=== PATIENT | female | born 1945 | race Two or more races ===

== ENCOUNTER 2021-01-06 10:50 | Outpatient (CLI) | payer MEDICARE, BC ==
[2021-01-06] MEDS ORDERED: LIDOCAINE SOLN 4% 50 ML BOTTLE ONE (11:14)
[2021-01-06] MEDS ORDERED: COLLAGENASE 5 GM TUBE UD TP ONE (11:42)
[2021-01-06 12:28] LABS: BASOPHILS # (AUTO) 0.1 K/uL (0.0-0.2); BASOPHILS % (AUTO) 1.4 % (0.0-2.0); EOSINOPHILS % (AUTO) 2.2 % (0.0-6.0); HEMATOCRIT 38 % (33-45); HEMOGLOBIN 12.4 g/dL (11.5-14.8); LYMPHOCYTES # (AUTO) 2.8 K/uL (0.8-4.8); LYMPHOCYTES % (AUTO) 29.5 % (20.0-44.0); MEAN CORPUSCULAR HGB CONC 33 g/dl (31.0-36.0); MEAN CORPUSCULAR VOLUME 90 fL (82-100); MONOCYTES # (AUTO) 0.6 K/uL (0.1-1.30); MONOCYTES % (AUTO) 6.5 % (2.0-12.0); NEUTROPHILS # (AUTO) 5.7 K/uL (1.8-8.9); NEUTROPHILS % (AUTO) 60.4 % (43.0-81.0); PLATELET COUNT (AUTO) 335 K/uL (150-450); RED BLOOD CELL COUNT(AUTO) 4.23 MIL/uL (4.0-5.2); WHITE BLOOD COUNT (AUTO) 9.3 K/uL (4.3-11.0)
[2021-01-06 13:09] LABS: PREALBUMIN 24.9 MG/DL (18.0-35.7)
[2021-01-06 13:12] LABS: ALBUMIN 3.5 g/dL (3.4-5.0); BILIRUBIN,TOTAL 0.4 mg/dL (0.2-1.0); CALCIUM, SERUM 9.2 mg/dL (8.5-10.1); CREATININE 1.1 mg/dL (0.6-1.3); POTASSIUM 4.3 mmol/L (3.5-5.1); TOTAL PROTEIN, SERUM 7.2 g/dL (6.4-8.2)
== END 2021-01-06 23:59 | disposition home or self-care (01) ==
LOC: WOU 10:50
PROVIDERS: ATTEND Podiatrist Foot & Ankle Surgery
DX: I70.243 Atherosclerosis of native arteries of left leg with ulceration of ankle (principal); I70.248 Atherosclerosis of native arteries of left leg with ulceration of other part of lower leg; L97.322 Non-pressure chronic ulcer of left ankle with fat layer exposed; L97.825 Non-pressure chronic ulcer of other part of left lower leg with muscle involvement without evidence of necrosis; M79.605 Pain in left leg; I10 Essential (primary) hypertension
CPT/HCPCS: 11042; 11043; 36415; 80053-TC; 84134-TC; 85025-TC

== ENCOUNTER → 2021-01-13 | Outpatient (CLI) | payer MEDICARE, BC ==
[~2021-01-13] MED LIST: COLLAGENASE 5 GM TUBE UD TP ONE; LIDOCAINE SOLN 4% 50 ML BOTTLE ONE
== END | disposition home or self-care (01) ==
LOC: WOU 09:25
PROVIDERS: ATTEND Podiatrist Foot & Ankle Surgery
DX: I70.243 Atherosclerosis of native arteries of left leg with ulceration of ankle (principal); L97.323 Non-pressure chronic ulcer of left ankle with necrosis of muscle; I70.248 Atherosclerosis of native arteries of left leg with ulceration of other part of lower leg; L97.822 Non-pressure chronic ulcer of other part of left lower leg with fat layer exposed; M79.605 Pain in left leg
CPT/HCPCS: 11042; 11043; 87070-TC; 87075-TC; 87186-TC

== ENCOUNTER 2021-01-19 09:10 | Outpatient (CLI) | payer MEDICARE, BC ==
[2021-01-19] MEDS ORDERED: COLLAGENASE 5 GM TUBE UD TP ONE (10:16)
== END 2021-01-19 23:59 | disposition home or self-care (01) ==
LOC: VASLAB 09:10
PROVIDERS: ATTEND Internal Medicine
DX: I70.242 Atherosclerosis of native arteries of left leg with ulceration of calf (principal); L97.229 Non-pressure chronic ulcer of left calf with unspecified severity; Z88.6 Allergy status to analgesic agent; I10 Essential (primary) hypertension; Z87.828 Personal history of other (healed) physical injury and trauma
CPT/HCPCS: G0463

== ENCOUNTER 2021-01-20 09:15 | Outpatient (CLI) | payer MEDICARE, BC ==
[2021-01-20] MEDS ORDERED: GENTAMICIN 0.1% CREAM 15 GM TUBE ONE (09:53)
== END 2021-01-20 23:59 | disposition home health service (06) ==
LOC: WOU 09:15
PROVIDERS: ATTEND Podiatrist Foot & Ankle Surgery
DX: I70.242 Atherosclerosis of native arteries of left leg with ulceration of calf (principal); I70.243 Atherosclerosis of native arteries of left leg with ulceration of ankle; L97.222 Non-pressure chronic ulcer of left calf with fat layer exposed; L97.323 Non-pressure chronic ulcer of left ankle with necrosis of muscle; S80.862S Insect bite (nonvenomous), left lower leg, sequela; T14.8XXS Other injury of unspecified body region, sequela; W57.XXXS Bitten or stung by nonvenomous insect and other nonvenomous arthropods, sequela; Z96.642 Presence of left artificial hip joint; I10 Essential (primary) hypertension
CPT/HCPCS: 11042; 11043; A6407

== ENCOUNTER 2021-01-27 10:34 | Outpatient (CLI) | payer MEDICARE, BC ==
[~2021-01-27 10:34] MED LIST changes: +GENTAMICIN 0.1% CREAM 15 GM TUBE ONE; -LIDOCAINE SOLN 4% 50 ML BOTTLE ONE
== END 2021-01-27 23:59 | disposition home health service (06) ==
LOC: WOU 10:34
PROVIDERS: ATTEND Podiatrist Foot & Ankle Surgery
DX: I70.243 Atherosclerosis of native arteries of left leg with ulceration of ankle (principal); L97.323 Non-pressure chronic ulcer of left ankle with necrosis of muscle; S90.562S Insect bite (nonvenomous), left ankle, sequela; W57.XXXS Bitten or stung by nonvenomous insect and other nonvenomous arthropods, sequela; I70.242 Atherosclerosis of native arteries of left leg with ulceration of calf; L97.225 Non-pressure chronic ulcer of left calf with muscle involvement without evidence of necrosis; I10 Essential (primary) hypertension; Z96.642 Presence of left artificial hip joint; Z88.6 Allergy status to analgesic agent
CPT/HCPCS: 11043; A6407

== ENCOUNTER → 2021-02-01 | Outpatient (CLI) | payer MEDICARE, BC ==
[~2021-02-01] MED LIST changes: -COLLAGENASE 5 GM TUBE UD TP ONE; -GENTAMICIN 0.1% CREAM 15 GM TUBE ONE; +VALS1TAB6 PO
== END | disposition home or self-care (01) ==
LOC: WOU 12:00
PROVIDERS: ATTEND Registered Nurse
DX: S81.802D Unspecified open wound, left lower leg, subsequent encounter (principal); V89.2XXD Person injured in unspecified motor-vehicle accident, traffic, subsequent encounter; B96.4 Proteus (mirabilis) (morganii) as the cause of diseases classified elsewhere; B95.2 Enterococcus as the cause of diseases classified elsewhere; I73.9 Peripheral vascular disease, unspecified; I10 Essential (primary) hypertension
CPT/HCPCS: G0463

== ENCOUNTER 2021-02-03 09:05 | Outpatient (CLI) | payer MEDICARE, BC ==
[2021-02-03] MEDS ORDERED: GENTAMICIN 0.1% CREAM 15 GM TUBE ONE (09:43)
== END 2021-02-03 23:59 | disposition home health service (06) ==
LOC: WOU 09:05
PROVIDERS: ATTEND Podiatrist Foot & Ankle Surgery
DX: I70.243 Atherosclerosis of native arteries of left leg with ulceration of ankle (principal); I70.242 Atherosclerosis of native arteries of left leg with ulceration of calf; L97.223 Non-pressure chronic ulcer of left calf with necrosis of muscle; L97.323 Non-pressure chronic ulcer of left ankle with necrosis of muscle; M79.605 Pain in left leg; Z96.642 Presence of left artificial hip joint; I10 Essential (primary) hypertension; Z88.6 Allergy status to analgesic agent; I73.9 Peripheral vascular disease, unspecified
CPT/HCPCS: 11043; A6407

== ENCOUNTER 2021-02-10 09:10 | Outpatient (CLI) | payer MEDICARE, BC ==
[2021-02-10] MEDS ORDERED: LIDOCAINE SOLN 4% 50 ML BOTTLE ONE (09:14)
== END 2021-02-10 23:59 | disposition home health service (06) ==
LOC: WOU 09:10
PROVIDERS: ATTEND Podiatrist Foot & Ankle Surgery
DX: I70.243 Atherosclerosis of native arteries of left leg with ulceration of ankle (principal); L97.325 Non-pressure chronic ulcer of left ankle with muscle involvement without evidence of necrosis; I70.242 Atherosclerosis of native arteries of left leg with ulceration of calf; L97.825 Non-pressure chronic ulcer of other part of left lower leg with muscle involvement without evidence of necrosis; I73.9 Peripheral vascular disease, unspecified; M79.605 Pain in left leg; I10 Essential (primary) hypertension
CPT/HCPCS: 11043

== ENCOUNTER 2021-02-21 09:50 | Outpatient (CLI) | payer MEDICARE, BC | END 2021-02-21 23:59 | disposition home health service (06) | LOC: WOU 09:50 | PROVIDERS: ATTEND Podiatrist Foot & Ankle Surgery | DX: I70.243 Atherosclerosis of native arteries of left leg with ulceration of ankle (principal); L97.325 Non-pressure chronic ulcer of left ankle with muscle involvement without evidence of necrosis; I70.242 Atherosclerosis of native arteries of left leg with ulceration of calf; L97.225 Non-pressure chronic ulcer of left calf with muscle involvement without evidence of necrosis; M79.605 Pain in left leg | CPT/HCPCS: 11043 ==

== ENCOUNTER 2021-02-28 09:10 | Outpatient (CLI) | payer MEDICARE, BC ==
[2021-02-28] MEDS ORDERED: LIDOCAINE SOLN 4% 50 ML BOTTLE ONE (09:28)
[2021-02-28] MEDS ORDERED: GENTAMICIN 0.1% CREAM 15 GM TUBE ONE (10:06)
== END 2021-02-28 23:59 | disposition home health service (06) ==
LOC: WOU 09:10
PROVIDERS: ATTEND Podiatrist Foot & Ankle Surgery
DX: I70.243 Atherosclerosis of native arteries of left leg with ulceration of ankle (principal); I70.242 Atherosclerosis of native arteries of left leg with ulceration of calf; L97.325 Non-pressure chronic ulcer of left ankle with muscle involvement without evidence of necrosis; L97.225 Non-pressure chronic ulcer of left calf with muscle involvement without evidence of necrosis; M79.605 Pain in left leg
CPT/HCPCS: 11043

== ENCOUNTER 2021-03-01 14:27 | Outpatient (CLI) | payer MEDICARE, BC ==
[2021-03-01 15:38] LABS: BASOPHILS # (AUTO) 0.1 K/uL (0.0-0.2); BASOPHILS % (AUTO) 0.8 % (0.0-2.0); EOSINOPHILS % (AUTO) 3.5 % (0.0-6.0); HEMATOCRIT 38 % (33-45); HEMOGLOBIN 12.4 g/dL (11.5-14.8); LYMPHOCYTES # (AUTO) 2.4 K/uL (0.8-4.8); LYMPHOCYTES % (AUTO) 27.7 % (20.0-44.0); MEAN CORPUSCULAR HGB CONC 33 g/dl (31.0-36.0); MEAN CORPUSCULAR VOLUME 91 fL (82-100); MONOCYTES # (AUTO) 0.4 K/uL (0.1-1.30); MONOCYTES % (AUTO) 5.1 % (2.0-12.0); NEUTROPHILS # (AUTO) 5.3 K/uL (1.8-8.9); NEUTROPHILS % (AUTO) 62.9 % (43.0-81.0); PLATELET COUNT (AUTO) 363 K/uL (150-450); RED BLOOD CELL COUNT(AUTO) 4.18 MIL/uL (4.0-5.2); WHITE BLOOD COUNT (AUTO) 8.5 K/uL (4.3-11.0)
[2021-03-01 16:06] LABS: ALBUMIN 3.7 g/dL (3.4-5.0); BILIRUBIN,TOTAL 0.3 mg/dL (0.2-1.0); CALCIUM, SERUM 8.9 mg/dL (8.5-10.1); POTASSIUM 3.9 mmol/L (3.5-5.1); TOTAL PROTEIN, SERUM 7.6 g/dL (6.4-8.2)
== END 2021-03-01 23:59 | disposition home or self-care (01) ==
LOC: LAB 14:27
PROVIDERS: ATTEND Internal Medicine
DX: Z01.812 Encounter for preprocedural laboratory examination (principal); I73.9 Peripheral vascular disease, unspecified; L98.499 Non-pressure chronic ulcer of skin of other sites with unspecified severity
CPT/HCPCS: 36415; 80053-TC; 85025-TC; 85730-TC

== ENCOUNTER 2021-03-04 07:07 | Day surgery (SDC) | payer MEDICARE, BC ==
[~2021-03-04] VITALS: Ht 154.9 cm; Wt 53.1 kg
[2021-03-04] VITALS (8 sets, daily range): BP systolic 109–149; BP diastolic 53–79
--- NOTE | 2021-03-04 07:58 | NUR ---
Robles Miller (danette) contact info: [phone]
[2021-03-04] MEDS ORDERED: IODIXANOL 150 ML IV ONE (08:25)
[2021-03-04] MEDS ORDERED: IV SET PRIMARY PUMP SET 1 EA INFUS.SET MC ONE (08:25)
[2021-03-04] MEDS ORDERED: IV NS 0.9% 1,000 ML ONE (08:25)
[2021-03-04] MEDS ORDERED: MIDAZOLAM HCL 2 MG/2ML VIAL ONE (08:52)
[2021-03-04] MEDS ORDERED: FENTANYL PF 100MCG/2ML AMPUL ONE (08:52)
[2021-03-04] MEDS ORDERED: LIDOCAINE HCL/PF 1% 30 ML SDV ONE (09:00)
[2021-03-04] MEDS ORDERED: HEPARIN INFUSION/D5W 0 ML IV ONE (09:03)
[2021-03-04] MEDS ORDERED: VALS1TAB6 PO (10:10)
--- NOTE | 2021-03-04 10:20 | NUR ---
tele operating cost clerk: post op notes received pt from laboratory technical specialist with dx: s/p left leg angiogram. dressing to right groin in place with no bleeding noted. vss. afebrile. orders received and carried out. pt to go home after 6 hours. pulse palpable. oriented to room and surroundings. pt is on bedrest and pt verbalized understanding. will continue to monitor.
--- NOTE | 2021-03-04 10:30 | NUR ---
tele button riveter: notes placed pt on tele=sr 78. will continue to monitor.
--- NOTE | 2021-03-04 10:50 | NUR ---
m/s folder gluer operator: notes check pulse on site and remains palpable. will continue to monitor.
--- NOTE | 2021-03-04 11:00 | NUR ---
tele office workforce planner: notes dr. armas called with order to discharge pt home after 6 hours and to follow up with dr. marques on sunday as scheduled. order carried out. pt aware. family notified by joanne (sae) from research lab assistant.
--- NOTE | 2021-03-04 11:20 | NUR ---
tele envelope adjuster: notes vital signs remains stable. pulse remains palpable. no bleeding noted at site. pt remains at bedrest. will continue to monitor.
[2021-03-04] MEDS ORDERED: IV NS 0.9% 1,000 ML IV ONE (11:30)
--- NOTE | 2021-03-04 12:20 | NUR ---
tele county surveyor: notes pt remains on bedrest, resting comfortable. vss. instructed to call assistance. iv fluids infusing. no bleeding at site and pulse palpable. will continue to monitor.
--- NOTE | 2021-03-04 13:20 | NUR ---
tele dredge pipeman: notes hob elevated at 30 degree per order. vital signs remains stable. no bleeding at site and with pulse is palpable. instructed to call for assistance. will continue to monitor.
--- NOTE | 2021-03-04 14:20 | NUR ---
tele weight shifter: notes pt voided at this time. hob elevated at 30 degree. site with no bleeding noted. pulse remains palpable. iv fluids infusing well. will continue to monitor.
--- NOTE | 2021-03-04 15:20 | NUR ---
tele property insurance claims examiner: notes vital signs remains stable. no bleeding at site and with pulse is palpable. instructed to call for assistance. will continue to monitor. iv fluids infusing well. no distress noted. will continue to monitor.
--- NOTE | 2021-03-04 16:00 | NUR ---
m/s aquatic director: notes no changes in pt condition. site remains with no bleeding noted and pulse palpable. call light within reach. will continue to monitor.
--- NOTE | 2021-03-04 16:25 | NUR ---
tele group fitness instructor: notes pt remains stable and stable for discharge. right groin dressing remains intact with no bleeding noted and pulse is palpable. needs attended. discharge instructions given to pt and will follow up with dr. marques on sunday, pt will call on sunday to make appointment. pt called her son to pick her up. vss. will continue to monitor.
--- NOTE | 2021-03-04 16:35 | NUR ---
tele water main installer helper: notes h/l removed with tip intact. tele removed. pt stable for discharge, awaiting turkey picker.
--- NOTE | 2021-03-04 17:00 | NUR ---
tele log sorting supervisor: notes discharge home accompanied by son via private car in stable condition with d'c papers and belongings.
== END 2021-03-04 19:00 | disposition home or self-care (01) ==
LOC: CATHLAB 07:07 → UNDOADMIN 11:03 → MED 11:03 → UNDODISIN 17:00 → CATHLAB 19:00
PROVIDERS: ATTEND Internal Medicine
DX: I70.292 Other atherosclerosis of native arteries of extremities, left leg (principal); I10 Essential (primary) hypertension
CPT/HCPCS: 36246; 75625; 75710; 87426; 99152; C1769; C1887; C1894; C9803; J1644; J2250; J3010; J3490; J7030 ×2; Q9967; 36415; 75630-TC; 80053-TC; 85025-TC; 85730-TC; G0378; G0500

== ENCOUNTER 2021-03-07 09:25 | Outpatient (CLI) | payer MEDICARE, BC ==
[2021-03-07] MEDS ORDERED: LIDOCAINE SOLN 4% 50 ML BOTTLE ONE (10:05)
[2021-03-07] MEDS ORDERED: GENTAMICIN 0.1% CREAM 15 GM TUBE ONE (10:11)
== END 2021-03-07 23:59 | disposition home health service (06) ==
LOC: WOU 09:25
PROVIDERS: ATTEND Podiatrist Foot & Ankle Surgery
DX: I70.243 Atherosclerosis of native arteries of left leg with ulceration of ankle (principal); I70.242 Atherosclerosis of native arteries of left leg with ulceration of calf; L97.325 Non-pressure chronic ulcer of left ankle with muscle involvement without evidence of necrosis; L97.225 Non-pressure chronic ulcer of left calf with muscle involvement without evidence of necrosis; M79.605 Pain in left leg
CPT/HCPCS: 11043

== ENCOUNTER 2021-03-14 10:00 | Outpatient (CLI) | payer MEDICARE, BC ==
[2021-03-14] MEDS ORDERED: LIDOCAINE SOLN 4% 50 ML BOTTLE ONE (10:05)
[2021-03-14] MEDS ORDERED: GENTAMICIN 0.1% CREAM 15 GM TUBE ONE (10:27)
== END 2021-03-14 23:59 | disposition home health service (06) ==
LOC: WOU 10:00
PROVIDERS: ATTEND Podiatrist Foot & Ankle Surgery
DX: I70.243 Atherosclerosis of native arteries of left leg with ulceration of ankle (principal); L97.325 Non-pressure chronic ulcer of left ankle with muscle involvement without evidence of necrosis; I70.242 Atherosclerosis of native arteries of left leg with ulceration of calf; L97.225 Non-pressure chronic ulcer of left calf with muscle involvement without evidence of necrosis; M79.605 Pain in left leg; I10 Essential (primary) hypertension
CPT/HCPCS: 11043

== ENCOUNTER 2021-03-21 09:45 | Outpatient (CLI) | payer MEDICARE, BC ==
[2021-03-21] MEDS ORDERED: LIDOCAINE SOLN 4% 50 ML BOTTLE ONE (10:02)
[2021-03-21] MEDS ORDERED: GENTAMICIN 0.1% CREAM 15 GM TUBE ONE (10:38)
== END 2021-03-21 23:59 | disposition home health service (06) ==
LOC: WOU 09:45
PROVIDERS: ATTEND Podiatrist Foot & Ankle Surgery
DX: I70.243 Atherosclerosis of native arteries of left leg with ulceration of ankle (principal); I70.242 Atherosclerosis of native arteries of left leg with ulceration of calf; L97.325 Non-pressure chronic ulcer of left ankle with muscle involvement without evidence of necrosis; L97.825 Non-pressure chronic ulcer of other part of left lower leg with muscle involvement without evidence of necrosis; M79.605 Pain in left leg; I10 Essential (primary) hypertension
CPT/HCPCS: 11043; A6452

== ENCOUNTER → 2021-03-28 | Outpatient (CLI) | payer MEDICARE, BC ==
[~2021-03-28] MED LIST changes: +GENTAMICIN 0.1% CREAM 15 GM TUBE ONE; +LIDOCAINE SOLN 4% 50 ML BOTTLE ONE
== END | disposition home health service (06) ==
LOC: WOU 10:00
PROVIDERS: ATTEND Podiatrist Foot & Ankle Surgery
DX: I70.242 Atherosclerosis of native arteries of left leg with ulceration of calf (principal); L97.825 Non-pressure chronic ulcer of other part of left lower leg with muscle involvement without evidence of necrosis; I70.243 Atherosclerosis of native arteries of left leg with ulceration of ankle; L97.322 Non-pressure chronic ulcer of left ankle with fat layer exposed; M79.605 Pain in left leg; I10 Essential (primary) hypertension
CPT/HCPCS: 11042; 11043; A6452 ×2

== ENCOUNTER 2021-04-04 09:50 | Outpatient (CLI) | payer MEDICARE, BC ==
[~2021-04-04 09:50] MED LIST changes: -GENTAMICIN 0.1% CREAM 15 GM TUBE ONE; -LIDOCAINE SOLN 4% 50 ML BOTTLE ONE
[2021-04-04] MEDS ORDERED: LIDOCAINE SOLN 4% 50 ML BOTTLE ONE (10:00)
[2021-04-04] MEDS ORDERED: GENTAMICIN 0.1% CREAM 15 GM TUBE ONE (10:08)
== END 2021-04-04 23:59 | disposition home health service (06) ==
LOC: WOU 09:50
PROVIDERS: ATTEND Podiatrist Foot & Ankle Surgery
DX: I70.243 Atherosclerosis of native arteries of left leg with ulceration of ankle (principal); I70.242 Atherosclerosis of native arteries of left leg with ulceration of calf; S90.562S Insect bite (nonvenomous), left ankle, sequela; X58.XXXS Exposure to other specified factors, sequela; M79.605 Pain in left leg; I10 Essential (primary) hypertension; Z96.642 Presence of left artificial hip joint
CPT/HCPCS: 11042; 11043; A6452

== ENCOUNTER 2021-04-11 09:45 | Outpatient (CLI) | payer MEDICARE, BC | END 2021-04-11 23:59 | disposition home health service (06) | LOC: WOU 09:45 | PROVIDERS: ATTEND Podiatrist Foot & Ankle Surgery | DX: I70.243 Atherosclerosis of native arteries of left leg with ulceration of ankle (principal); L97.322 Non-pressure chronic ulcer of left ankle with fat layer exposed; I70.248 Atherosclerosis of native arteries of left leg with ulceration of other part of lower leg; L97.825 Non-pressure chronic ulcer of other part of left lower leg with muscle involvement without evidence of necrosis; W57.XXXS Bitten or stung by nonvenomous insect and other nonvenomous arthropods, sequela; M79.605 Pain in left leg | CPT/HCPCS: 11042; 11043; A6452 ==

== ENCOUNTER 2021-04-18 09:50 | Outpatient (CLI) | payer MEDICARE, BC | END 2021-04-18 23:59 | disposition home health service (06) | LOC: WOU 09:50 | PROVIDERS: ATTEND Podiatrist Foot & Ankle Surgery | DX: I70.243 Atherosclerosis of native arteries of left leg with ulceration of ankle (principal); L97.322 Non-pressure chronic ulcer of left ankle with fat layer exposed; I70.248 Atherosclerosis of native arteries of left leg with ulceration of other part of lower leg; L97.825 Non-pressure chronic ulcer of other part of left lower leg with muscle involvement without evidence of necrosis; M79.605 Pain in left leg | CPT/HCPCS: 11042; 11043; A6452 ==

== ENCOUNTER 2021-04-25 09:50 | Outpatient (CLI) | payer MEDICARE, BC | END 2021-04-25 23:59 | disposition home health service (06) | LOC: WOU 09:50 | PROVIDERS: ATTEND Podiatrist Foot & Ankle Surgery | DX: I70.248 Atherosclerosis of native arteries of left leg with ulceration of other part of lower leg (principal); I70.243 Atherosclerosis of native arteries of left leg with ulceration of ankle; L97.322 Non-pressure chronic ulcer of left ankle with fat layer exposed; L97.825 Non-pressure chronic ulcer of other part of left lower leg with muscle involvement without evidence of necrosis; M79.605 Pain in left leg; S90.562S Insect bite (nonvenomous), left ankle, sequela; W57.XXXS Bitten or stung by nonvenomous insect and other nonvenomous arthropods, sequela | CPT/HCPCS: 11042; 11043 ==

== ENCOUNTER 2021-05-16 09:45 | Outpatient (CLI) | payer MEDICARE, BC | END 2021-05-16 23:59 | disposition home health service (06) | LOC: WOU 09:45 | PROVIDERS: ATTEND Podiatrist Foot & Ankle Surgery | DX: I70.243 Atherosclerosis of native arteries of left leg with ulceration of ankle (principal); L97.328 Non-pressure chronic ulcer of left ankle with other specified severity; M79.605 Pain in left leg; I10 Essential (primary) hypertension | CPT/HCPCS: G0463 ==

== ENCOUNTER 2021-05-23 10:30 | Outpatient (CLI) | payer MEDICARE, BC | END 2021-05-23 23:59 | disposition home health service (06) | LOC: WOU 10:30 | PROVIDERS: ATTEND Podiatrist Foot & Ankle Surgery | DX: I70.242 Atherosclerosis of native arteries of left leg with ulceration of calf (principal); L97.822 Non-pressure chronic ulcer of other part of left lower leg with fat layer exposed; M79.605 Pain in left leg; I10 Essential (primary) hypertension | CPT/HCPCS: 11043 ==

== ENCOUNTER → 2021-05-23 | Outpatient (CLI) | payer MEDICARE, BC | END | disposition home or self-care (01) | LOC: RAD 11:05 | PROVIDERS: ATTEND Podiatrist Foot & Ankle Surgery | DX: M79.605 Pain in left leg (principal) | CPT/HCPCS: 93970-TC ==

== ENCOUNTER 2021-05-30 10:30 | Outpatient (CLI) | payer MEDICARE, BC | END 2021-05-30 23:59 | disposition home health service (06) | LOC: WOU 10:30 | PROVIDERS: ATTEND Podiatrist Foot & Ankle Surgery | DX: I70.248 Atherosclerosis of native arteries of left leg with ulceration of other part of lower leg (principal); L97.822 Non-pressure chronic ulcer of other part of left lower leg with fat layer exposed; M79.605 Pain in left leg | CPT/HCPCS: 11042 ==

== ENCOUNTER 2021-06-13 10:35 | Outpatient (CLI) | payer MEDICARE, BC | END 2021-06-13 23:59 | disposition home health service (06) | LOC: WOU 10:35 | PROVIDERS: ATTEND Podiatrist Foot & Ankle Surgery | DX: I70.248 Atherosclerosis of native arteries of left leg with ulceration of other part of lower leg (principal); L97.828 Non-pressure chronic ulcer of other part of left lower leg with other specified severity; M79.605 Pain in left leg; I10 Essential (primary) hypertension | CPT/HCPCS: G0463 ==

== ENCOUNTER 2021-06-27 09:55 | Outpatient (CLI) | payer MEDICARE, BC | END 2021-06-27 23:59 | disposition home health service (06) | LOC: WOU 09:55 | PROVIDERS: ATTEND Podiatrist Foot & Ankle Surgery | DX: I73.9 Peripheral vascular disease, unspecified (principal); M79.605 Pain in left leg | CPT/HCPCS: G0463 ==